=== PATIENT | female | born 1980 | race Caucasian/White ===

== ENCOUNTER 2018-12-13 20:12 | Emergency (ER) | payer OTHER ==
[~2018-12-13] VITALS: Ht 149.9 cm; Wt 51.7 kg
[2018-12-13] MEDS ORDERED: XANAX0.5 MG PO (20:21)
== END 2018-12-13 21:50 | disposition home or self-care (01) ==
LOC: ED 20:12
DX: S02.2XXA Fracture of nasal bones, initial encounter for closed fracture (principal); F41.9 Anxiety disorder, unspecified; W51.XXXA Accidental striking against or bumped into by another person, initial encounter
CPT/HCPCS: 70160; 99283

== ENCOUNTER 2022-04-15 16:05 | Emergency (ER) | payer OTHER ==
[~2022-04-15] VITALS: Ht 149.9 cm; Wt 55.0 kg
[~2022-04-15 16:05] MED LIST: XANAX0.5 MG PO
--- OUTSIDE RECORDS SUMMARY | 2022-04-15 16:08 | XMS ---
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 Bao VISIT COUNT (12 MO.) 1 Jose Person TOTAL 2 NOTE: Visits indicate total known visits. ED/UCC VISIT TRACKING (12 MO.) 04/15/2022 16:06 JOEY Lorenzo OR TYPE: Emergency COMPLAINT: - ABDOMINAL PAIN 09/18/2021 20:44 Jose DON OR TYPE: Emergency DIAGNOSES: - Other injury of unspecified body region, initial encounter - possible blood clot - Bruises (Non-traumatic) INPATIENT VISIT TRACKING (12 MO.) No inpatient visits to display in this time frame [email or web address]
[2022-04-15] MEDS ORDERED: CLONAZEPAM0.5 MG PO (16:54)
[2022-04-15] MEDS ORDERED: PRILOSEC OTC20 MG PO (16:54)
[2022-04-15] MEDS ORDERED: METHYLPHENIDATE18 MG PO (16:55)
== END 2022-04-15 19:48 | disposition home or self-care (01) ==
LOC: ED 16:05
DX: R10.13 Epigastric pain (principal); Z79.899 Other long term (current) drug therapy
CPT/HCPCS: 36415; 74177; 80053; 81001; 83690; 85025; 99284-25; Q9967